=== PATIENT | female | born 1960 | race Caucasian/White ===

== ENCOUNTER 2017-02-27 11:10 | Inpatient (IN) | payer BC ==
[~2017-02-27] VITALS: Ht 167.6 cm; Wt 90.9 kg
[2017-02-27] MEDS ORDERED: ASPIRIN 325 MG TABLET PO ONE (11:30)
[2017-02-27 11:36] LABS: BASO # 0.1 x10^3/uL (0.0-0.2); BASO % 1 % (0-3); EOS % 1 % (0-3); HEMATOCRIT 36.3 % (36.0-47.0); HEMOGLOBIN 12.4 g/dL (12.0-15.5); LYMPH # 1.8 x10^3/uL (1.0-4.8); LYMPH % 23 % (24-48); MEAN CORPUSCULAR HEMOGLOBIN 30 pg (25-35); MEAN CORPUSCULAR HGB CONC 34 g/dL (31-37); MEAN CORPUSCULAR VOLUME 88 fL (79-100); MONO % 8 % (0-9); NEUT % 67 % (31-73); PLATELET COUNT 339 x10^3/uL (140-400); RED BLOOD COUNT 4.11 x10^6/uL (3.50-5.40); RED CELL DISTRIBUTION WIDTH 13.8 % (11.5-14.5); WHITE BLOOD COUNT 7.9 x10^3/uL (4.0-11.0)
[2017-02-27 11:46] LABS: CALCIUM 9.4 mg/dL (8.5-10.1); CREATININE 0.7 mg/dL (0.6-1.0); GFR 85.9; POTASSIUM 3.5 mmol/L (3.5-5.1)
[2017-02-27 11:53] LABS: ALBUMIN 3.5 g/dL (3.4-5.0); ALBUMIN/GLOBULIN RATIO 0.9 (1.0-1.7); MAGNESIUM 1.7 mg/dL (1.8-2.4); TOTAL BILIRUBIN 0.3 mg/dL (0.2-1.0); TOTAL PROTEIN 7.3 g/dL (6.4-8.2)
[2017-02-27 12:00] LABS: CKMB MASS < 0.5 ng/mL (0.0-3.6); CREATINE KINASE 53 U/L (26-192)
--- NOTE | 2017-02-27 12:06 | RAD ---
Frontal view of the Chest 02/27/2017 1:13 PM Indication: chest pain Comparison: None Findings: There is no focal consolidation or infiltrate identified. There is no effusion or pneumothorax. The cardiomediastinal silhouette and pulmonary vasculature are within normal limits. No osseous abnormality is identified. Impression: No evidence of acute cardiopulmonary process.
--- NOTE | 2017-02-27 12:32 | EKG ---
[facility] [address] [place] [address] Test Date: 2017-02-27 Test Time: 11:17:12 Pat Name: MAGEN CASTELAN Department: Room: Gender: F Stockholder: : 1960 Requested By: SANDIE ORLANDO Order Number: [id number] Reading MD: Measurements Intervals [place] Rate: 75 P: 20 NH: 164 QRS: -5 QRSD: 94 T: 22 QT: 412 QTc: 463 Interpretive Statements SINUS RHYTHM LEFT ATRIAL ABNORMALITY LEFTWARD AXIS ABNORMAL ECG RI6.01 No previous ECG available for comparison
--- NOTE | 2017-02-27 12:36 | PHYS DOC ---
Past Medical History Past Medical History: Arthritis, High Cholesterol, Hypertension Past Surgical History: , Hysterectomy, Other Additional Past Surgical Histo: OVARIAN CYST REMOVAL, CARDIA CATH, R CARPAL TUNNEL Alcohol Use: None Drug Use: None Adult General Chief Complaint Chief Complaint: CHEST PAIN HPI HPI Patient is a 56 year old female with history of hypertension high cholesterol and arthritis who presents today 6 out of 10 sharp mid substernal and left- sided chest pain that began 2 weeks ago and has been going on intermittently since then. Patient states the pain got worse today with radiation into the left shoulder as well as left chin. Patient is also complaining of nausea with no vomiting. Patient denies anything relieving the pain. Patient did not take an aspirin prior to coming to the ED. She states she's had multiple catheterization procedures for chest pain which were negative. PCP Dr. Alexis. Review of Systems Review of Systems Constitutional: Denies fever or chills [] Eyes: Denies change in visual acuity, redness, or eye pain [] HENT: Denies nasal congestion or sore throat [] Respiratory: Denies cough or shortness of breath [] Cardiovascular: Left-sided chest pain, substernal chest pain, pain radiating to the chin and left shoulder GI: Reports nausea. Denies abdominal pain, vomiting, bloody stools or diarrhea [ ] : Denies dysuria or hematuria [] Musculoskeletal: Denies back pain or joint pain [] Integument: Denies rash or skin lesions [] Neurologic: Denies headache, focal weakness or sensory changes [] All other systems were reviewed and found to be within normal limits, except as documented in this note. Current Medications Current Medications Current Medications Medications (Trade) Dose Ordered Sig/Erich Start Time Stop Time Status Last Admin Dose Admin Aspirin (Mary Aspirin) 325 mg 1X ONCE 02/27/17 11:30 02/27/17 11:31 DC 02/27/17 11:39 325 MG Allergies Allergies Allergies Coded Allergies Type Severity Reaction Last Updated Verified Corticosteroids (Glucocorticoids) Allergy Intermediate HIGH BP 02/27/17 Yes Penicillins Allergy Intermediate RASH 02/27/17 Yes Sulfa (Sulfonamide Antibiotics) Allergy Intermediate RASH 02/27/17 Yes diltiazem Allergy Intermediate RASH 02/27/17 Yes doxycycline Allergy Intermediate HEADACHE 02/27/17 Yes Physical Exam Physical Exam Constitutional: Well developed, well nourished, no acute distress, non-toxic appearance. [] HENT: Normocephalic, atraumatic, bilateral external ears normal, oropharynx moist, no oral exudates, nose normal. [] Eyes: PERRLA, EOMI, conjunctiva normal, no discharge. [] Neck: Normal range of motion, no tenderness, supple, no stridor. [] Cardiovascular:Heart rate regular rhythm, no murmur [] Lungs & Thorax: Bilateral breath sounds clear to auscultation [] Abdomen: Bowel sounds normal, soft, no tenderness, no masses, no pulsatile masses. [] Skin: Warm, dry, no erythema, no rash. [] Back: No tenderness, no CVA tenderness. [] Extremities: No tenderness, no cyanosis, no clubbing, ROM intact, no edema. [] Neurologic: Alert and oriented X 3, normal motor function, normal sensory function, no focal deficits noted. [] Psychologic: Affect normal, judgement normal, mood normal. [] Current Patient Data Vital Signs Vital Signs Date Time Temp Pulse Resp B/P (MAP) Pulse Ox O2 Delivery O2 Flow Rate FiO2 02/27/17 12:18 72 13 179/81 (113) 95 Room Air 02/27/17 11:15 98.3 98.3 Lab Values Laboratory Tests Test 02/27/17 11:30 02/27/17 12:30 White Blood Count 7.9 x10^3/uL (4.0-11.0) Red Blood Count 4.11 x10^6/uL (3.50-5.40) Hemoglobin 12.4 g/dL (12.0-15.5) Hematocrit 36.3 % (36.0-47.0) Mean Corpuscular Volume 88 fL (79-100) Mean Corpuscular Hemoglobin 30 pg (25-35) Mean Corpuscular Hemoglobin Concent 34 g/dL (31-37) Red Cell Distribution Width 13.8 % (11.5-14.5) Platelet Count 339 x10^3/uL (140-400) Neutrophils (%) (Auto) 67 % (31-73) Lymphocytes (%) (Auto) 23 % (24-48) L Monocytes (%) (Auto) 8 % (0-9) Eosinophils (%) (Auto) 1 % (0-3) Basophils (%) (Auto) 1 % (0-3) Neutrophils # (Auto) 5.3 x10^3uL (1.8-7.7) Lymphocytes # (Auto) 1.8 x10^3/uL (1.0-4.8) Monocytes # (Auto) 0.6 x10^3/uL (0.0-1.1) Eosinophils # (Auto) 0.1 x10^3/uL (0.0-0.7) Basophils # (Auto) 0.1 x10^3/uL (0.0-0.2) Prothrombin Time 13.0 SEC (11.7-14.0) Prothrombin Time INR 1.0 (0.8-1.1) Sodium Level 138 mmol/L (136-145) Potassium Level 3.5 mmol/L (3.5-5.1) Chloride Level 101 mmol/L (98-107) Carbon Dioxide Level 25 mmol/L (21-32) Anion Gap 12 (6-14) Blood Urea Nitrogen 9 mg/dL (7-20) Creatinine 0.7 mg/dL (0.6-1.0) Estimated GFR (Cockcroft-Gault) 85.9 BUN/Creatinine Ratio 13 (6-20) Glucose Level 94 mg/dL (70-99) Calcium Level 9.4 mg/dL (8.5-10.1) Magnesium Level 1.7 mg/dL (1.8-2.4) L Total Bilirubin 0.3 mg/dL (0.2-1.0) Aspartate Amino Transferase (AST) 23 U/L (15-37) Alanine Aminotransferase (ALT) 28 U/L (14-59) Alkaline Phosphatase 84 U/L (46-116) Creatine Kinase 53 U/L (26-192) Creatine Kinase MB (Mass) < 0.5 ng/mL (0.0-3.6) Creatine Kinase MB Relative Index % (0-4) Troponin I Quantitative < 0.017 ng/mL (0.000-0.055) PW-Efw-F-Type Natriuretic Peptide 362 pg/mL (0-124) H Total Protein 7.3 g/dL (6.4-8.2) Albumin 3.5 g/dL (3.4-5.0) Albumin/Globulin Ratio 0.9 (1.0-1.7) L Lipase 70 U/L (73-393) L Thyroid Stimulating Hormone (TSH) 2.405 uIU/mL (0.358-3.74) Urine Collection Type Unknown Urine Color Yellow Urine Clarity Clear Urine pH 6.0 Urine Specific [place] 1.010 Urine Protein Negative mg/dL (NEG-TRACE) Urine Glucose (UA) Negative mg/dL (NEG) Urine Ketones (Stick) Negative mg/dL (NEG) Urine Blood Negative (NEG) Urine Nitrite Negative (NEG) Urine Bilirubin Negative (NEG) Urine Urobilinogen Dipstick 0.2 mg/dL (0.2 mg/dL) Urine Leukocyte Esterase Negative (NEG) Urine RBC 0 /HPF (0-2) Urine WBC 5-10 /HPF (0-4) Urine Squamous Epithelial Cells Mod /LPF Urine Bacteria Many /HPF (0-FEW) Urine Mucus Mod /LPF Urine Opiates Screen Neg (NEG) Urine Methadone Screen Neg (NEG) Urine Barbiturates Neg (NEG) Urine Phencyclidine Screen Neg (NEG) Urine Amphetamine/Methamphetamine Neg (NEG) Urine Benzodiazepines Screen Neg (NEG) Urine Cocaine Screen Neg (NEG) Urine Cannabinoids Screen Neg (NEG) Urine Ethyl Alcohol Neg (NEG) Laboratory Tests 02/27/17 11:30 Laboratory Tests 02/27/17 11:30 EKG EKG Interpreted by Dr. Ojeda sinus rhythm, heart rate 75, QRS interval 94, no STEMI. Radiology/Procedures Radiology/Procedures [] Course & Med Decision Making Course & Med Decision Making Pertinent Labs and Imaging studies reviewed. (See chart for details) This is a 56-year-old female patient with risk factors of high cholesterol and high blood pressure who presents today with left-sided and substernal chest pain that began 2 weeks ago and has been going on intermittently since then but got worse this morning with radiation into the left shoulder and chin. Negative EKG as documented. Chest x-ray interpreted by radiologist as negative for any acute findings. CBC CMP with no acute findings, CK-MB and troponin are normal. BNP was 362. 12:49 Consulted with Mariaa EATON for cardiology who will follow-up with patient. 12:[address] Lu who accepted patient for admission. Dragon Disclaimer Dragon Disclaimer This electronic medical record was generated, in whole or in part, using a voice recognition dictation system. Departure Departure Impression: Primary Impression: Chest pain Disposition: 09 ADMITTED INPATIENT Condition: STABLE Referrals: NICOLE ALEXIS (PCP) Problem Qualifiers Primary Impression: Chest pain Chest pain type: unspecified Qualified Codes: R07.9 - Chest pain, unspecified SANDIE ORLANDO TECHNICAL PROJECT LEAD Feb 27, 2017 12:36
[2017-02-27 12:54] LABS: BILIRUBIN,URINE NEGATIVE (NEG); GLUCOSE,URINE NEGATIVE (NEG); NITRITE,URINE NEGATIVE (NEG); PROTEIN,URINE NEGATIVE (NEG-TRACE); UROBILINOGEN,URINE 0.2 mg/dL (0.2 mg/dL)
[2017-02-27 12:56] LABS: BARBITURATES NEG (NEG); BENZODIAZEPINES NEG (NEG); CANNABINOIDS NEG (NEG); COCAINE NEG (NEG); METHADONE NEG (NEG); OPIATES NEG (NEG); PHENCYCLIDINE NEG (NEG)
[2017-02-27 13:09] LABS: BACTERIA,URINE MANY /HPF (0-FEW); RBC,URINE 0 /HPF (0-2); SQUAMOUS EPITHELIAL CELL,UR MOD /LPF
[2017-02-27] MEDS ORDERED: NITROGLYCERIN SUBLINGUAL 0.4 MG BOTTLE OF 25. SL PRN (13:30)
[2017-02-27] MEDS ORDERED: MORPHINE SULFATE 4 MG/ML DISP.SYRIN. IV PRN (13:30)
--- NOTE | 2017-02-27 13:59 | PDOC2 ---
MAGDA STRATTON BENITEZ 02/27/17 1359: CARDIAC CONSULT DATE OF CONSULT Date of Consult DATE: 02/27/17 TIME: 13:41 REASON FOR CONSULT Reason for Consult: Chest Pain REFERRING PHYSICIAN Referring Physician: Eleni Unger APRN SOURCE Source: Chart review, Patient HISTORY OF PRESENT ILLNESS HISTORY OF PRESENT ILLNESS This is a 56 yo female who presented with complaints of chest pain. Patient reports pain began this morning upon awakening. Located in her left chest. Describes as aching and sharp in nature. Associated with chin pain and mild nausea. No SOA, dizziness, diaphoresis, or palpations. Pain worsened by pressing on the left chest. Pain resolves without intervention. Reports experiencing intermittent left chest pain for the last couple of weeks. No precipitating or exacerbating factors. Resolves without intervention in a couple of minutes. BP noted to be significantly elevated upon arrival. Patient reports having normal heart cath 4-5 years ago and normal cardio scan 2 years ago. Does not follow routinely with [employer] patrol[employer]. Also reports history of mitral valve prolapse- although reports this was not identified with most recent echo a couple of years ago. PAST MEDICAL HISTORY Cardiovascular: HTN, Hyperlipidemia, Other (mitral valve prolapse) GI: GERD Psych: Anxiety, Depression Musculoskeletal: Osteoarthritis, Other (DDD) Rheumatologic: No pertinent hx Infectious disease: No pertinent hx ENT: No pertinent hx Renal/: No pertinent hx Endocrine: No pertinent hx Dermatology: No pertinent hx PAST SURGICAL HISTORY Past Surgical History: No pertinent history FAMILY HISTORY Family History: Coronary Artery Disease, Diabetes, Hypertension SOCIAL HISTORY Smoke: No ALCOHOL: none Drugs: None Lives: with Family CURRENT MEDICATIONS CURRENT MEDICATIONS Current Medications Medications (Trade) Dose Ordered Sig/Erich Route PRN Reason Start Time Stop Time Status Last Admin Dose Admin Aspirin (Mary Aspirin) 325 mg 1X ONCE PO 02/27/17 11:30 02/27/17 11:31 DC 02/27/17 11:39 ALLERGIES ALLERGIES: Coded Allergies: Corticosteroids (Glucocorticoids) (Verified Allergy, Intermediate, HIGH BP , 02/27/17) Penicillins (Verified Allergy, Intermediate, RASH, 02/27/17) Sulfa (Sulfonamide Antibiotics) (Verified Allergy, Intermediate, RASH, ) diltiazem (Verified Allergy, Intermediate, RASH, 02/27/17) doxycycline (Verified Allergy, Intermediate, HEADACHE, 02/27/17) ROS Review of System 14 point ROS conducted with pertinent positives noted above in HPI. PHYSICAL EXAM General: Alert, Oriented X3, Cooperative, No acute distress HEENT: Atraumatic, Mucous membr. moist/pink Lungs: Clear to auscultation, Normal air movement Heart: Regular rate, Normal S1, Normal S2, Other (2/6 systolic murmur, left chest tenderness upon palpation) Abdomen: Soft, No tenderness Extremities: No edema, Normal pulses Skin: No significant lesion Neuro: Normal speech, Sensation intact Psych/Mental Status: Mental status NL, Mood NL MUSCULOSKELETAL: Osteoarthritic changes both hands VITALS VITALS Vital Signs Date Time Temp Pulse Resp B/P (MAP) Pulse Ox O2 Delivery O2 Flow Rate FiO2 02/27/17 13:18 76 156/79 (104) 96 Room Air 02/27/17 12:18 13 02/27/17 11:15 98.3 98.3 LABS Lab: Laboratory Tests Test 02/27/17 11:30 02/27/17 12:30 White Blood Count 7.9 x10^3/uL (4.0-11.0) Red Blood Count 4.11 x10^6/uL (3.50-5.40) Hemoglobin 12.4 g/dL (12.0-15.5) Hematocrit 36.3 % (36.0-47.0) Mean Corpuscular Volume 88 fL (79-100) Mean Corpuscular Hemoglobin 30 pg (25-35) Mean Corpuscular Hemoglobin Concent 34 g/dL (31-37) Red Cell Distribution Width 13.8 % (11.5-14.5) Platelet Count 339 x10^3/uL (140-400) Neutrophils (%) (Auto) 67 % (31-73) Lymphocytes (%) (Auto) 23 % (24-48) Monocytes (%) (Auto) 8 % (0-9) Eosinophils (%) (Auto) 1 % (0-3) Basophils (%) (Auto) 1 % (0-3) Neutrophils # (Auto) 5.3 x10^3uL (1.8-7.7) Lymphocytes # (Auto) 1.8 x10^3/uL (1.0-4.8) Monocytes # (Auto) 0.6 x10^3/uL (0.0-1.1) Eosinophils # (Auto) 0.1 x10^3/uL (0.0-0.7) Basophils # (Auto) 0.1 x10^3/uL (0.0-0.2) Prothrombin Time 13.0 SEC (11.7-14.0) Prothromb Time International Ratio 1.0 (0.8-1.1) Sodium Level 138 mmol/L (136-145) Potassium Level 3.5 mmol/L (3.5-5.1) Chloride Level 101 mmol/L (98-107) Carbon Dioxide Level 25 mmol/L (21-32) Anion Gap 12 (6-14) Blood Urea Nitrogen 9 mg/dL (7-20) Creatinine 0.7 mg/dL (0.6-1.0) Estimated GFR (Cockcroft-Gault) 85.9 BUN/Creatinine Ratio 13 (6-20) Glucose Level 94 mg/dL (70-99) Calcium Level 9.4 mg/dL (8.5-10.1) Magnesium Level 1.7 mg/dL (1.8-2.4) Total Bilirubin 0.3 mg/dL (0.2-1.0) Aspartate Amino Transf (AST/SGOT) 23 U/L (15-37) Alanine Aminotransferase (ALT/SGPT) 28 U/L (14-59) Alkaline Phosphatase 84 U/L (46-116) Creatine Kinase 53 U/L (26-192) Creatine Kinase MB (Mass) < 0.5 ng/mL (0.0-3.6) Creatine Kinase MB Relative Index % (0-4) Troponin I Quantitative < 0.017 ng/mL (0.000-0.055) NR-Ooy-H-Type Natriuretic Peptide 362 pg/mL (0-124) Total Protein 7.3 g/dL (6.4-8.2) Albumin 3.5 g/dL (3.4-5.0) Albumin/Globulin Ratio 0.9 (1.0-1.7) Lipase 70 U/L (73-393) Thyroid Stimulating Hormone (TSH) 2.405 uIU/mL (0.358-3.74) Urine Collection Type Unknown Urine Color Yellow Urine Clarity Clear Urine pH 6.0 Urine Specific [place] 1.010 Urine Protein Negative mg/dL (NEG-TRACE) Urine Glucose (UA) Negative mg/dL (NEG) Urine Ketones (Stick) Negative mg/dL (NEG) Urine Blood Negative (NEG) Urine Nitrite Negative (NEG) Urine Bilirubin Negative (NEG) Urine Urobilinogen Dipstick 0.2 mg/dL (0.2 mg/dL) Urine Leukocyte Esterase Negative (NEG) Urine RBC 0 /HPF (0-2) Urine WBC 5-10 /HPF (0-4) Urine Squamous Epithelial Cells Mod /LPF Urine Bacteria Many /HPF (0-FEW) Urine Mucus Mod /LPF Urine Opiates Screen Neg (NEG) Urine Methadone Screen Neg (NEG) Urine Barbiturates Neg (NEG) Urine Phencyclidine Screen Neg (NEG) Urine Amphetamine/Methamphetamine Neg (NEG) Urine Benzodiazepines Screen Neg (NEG) Urine Cocaine Screen Neg (NEG) Urine Cannabinoids Screen Neg (NEG) Urine Ethyl Alcohol Neg (NEG) ASSESSMENT/PLAN ASSESSMENT/PLAN 1. Chest pain, atypical 2. Hypertension 3. Hyperlipidemia 4. GERD Recommendations Trend troponin Check lipids Resume home antiHTN therapy. Pain most probably MSK in origin, but given risk factors, will check echo to assess LV function If echo WNL, second troponin negative, and BP better controlled, can probably discharge from a CV standpoint and f/u on a outpatient basis. Problems: BRITTON GIBBONS MD 02/28/17 1447: CARDIAC CONSULT ALLERGIES ALLERGIES: Coded Allergies: Corticosteroids (Glucocorticoids) (Verified Allergy, Intermediate, HIGH BP , 02/27/17) Penicillins (Verified Allergy, Intermediate, RASH, 02/27/17) Sulfa (Sulfonamide Antibiotics) (Verified Allergy, Intermediate, RASH, ) diltiazem (Verified Allergy, Intermediate, RASH, 02/27/17) doxycycline (Verified Allergy, Intermediate, HEADACHE, 02/27/17) ASSESSMENT/PLAN ASSESSMENT/PLAN Late entry for 02/27/2017 Pt. seen and examined. Agree with above CHEMICAL RESEARCH TECHNICIAN note. Increase Losartan to 100mg daily. Keep BP log and f/u on an outpt basis. Echo wnl. Trop negative. EKG unremarkable. Low risk presentation. If persistent pain, consider outpt stress. Problems: MAGDA STRATTON APRN Feb 27, 2017 13:59 BRITTON GIBBONS MD Feb 28, 2017 14:47
[2017-02-27] MEDS: ACETAMINOPHEN 325 MG TABLET. PO PRN (14:32)
[2017-02-27 15:00] VITALS: BP 195/79
[2017-02-27] MEDS ORDERED: MAGNESIUM SULFATE 2GM 50 ML IV ONE (15:15)
--- NOTE | 2017-02-27 15:29 | CARD ---
APPROVED REPORT EXAM: Two-dimensional and M-mode echocardiogram with Doppler and color Doppler. Other Information Quality : Good INDICATION Chest Pain 2D DIMENSIONS Left Atrium(2D)3.5 (1.6-4.0cm)IVSd1.4 (0.7-1.1cm) Aortic Root(2D)3.2 (2.0-3.7cm)LVDd4.6 (3.9-5.9cm) LVOT Diameter2.1 (1.8-2.4cm)PWd1.3 (0.7-1.1cm) LVDs3.3 (2.5-4.0cm)FS (%) 27.6 % SV52.2 mlLVEF(%)53.6 (>50%) Aortic Valve AoV Peak Wily.139.0cm/sAoV VTI32.2cm AO Peak GR.7.7mmHgLVOT Peak Wily.111.2cm/s AO Mean GR.4mmHgAVA (VMAX)2.77cm2 CHRISTINE (VTI)2.80cm2 Mitral Valve MV E Rvmctgpy58.9cm/sMV DECEL LCPC912zw MV A Gxcvyfis848.4cm/sE/A Ratio0.6 Tricuspid Valve TR P. Vokrlcaa157pq/sRAP QKYOVFGF5gwHk TR Peak Gr.65wnOfVTTB49pdJz LEFT VENTRICLE The left ventricle is normal size. There is mild concentric left ventricular hypertrophy. Left ventri carmen systolic function is normal. The Ejection Fraction is 55-60%. There is normal LV segmental wall m otion. Transmitral Doppler flow pattern is Grade I-abnormal relaxation pattern. RIGHT VENTRICLE The right ventricle is normal size. The right ventricular systolic function is normal. ATRIA The left atrium size is normal. The right atrium size is normal. The interatrial septum is intact wit h no evidence for an atrial septal defect or patent foramen ovale as noted on 2-D or Doppler imaging. AORTIC VALVE The aortic valve is mildly thickened but opens well. Doppler and Color Flow revealed no significant a ortic regurgitation. There is no significant aortic valvular stenosis. MITRAL VALVE The mitral valve is calcified but opens well. There is no evidence of mitral valve prolapse. There is no mitral valve stenosis. Doppler and Color-flow revealed mild mitral regurgitation. TRICUSPID VALVE The tricuspid valve is normal in structure. Doppler and Color Flow revealed mild tricuspid regurgitat ion. There is no pulmonary hypertension. The PA pressure was estimated at 28 mmHg. There is no tricus pid valve prolapse or vegetation. There is no tricuspid valve stenosis. PULMONIC VALVE The pulmonary valve is normal in structure and function. Doppler and Color Flow revealed no pulmonic valvular regurgitation. There is no pulmonic valvular stenosis. GREAT VESSELS The aortic root is normal in size. The ascending aorta is normal in size. The IVC is normal in size a nd collapses >50% with inspiration. PERICARDIAL EFFUSION There is no pleural effusion. There is no evidence of significant pericardial effusion. Critical Notification Critical Value: No <Conclusion> Left ventricle systolic function is normal. The Ejection Fraction is 55-60%. There is normal LV segmental wall motion. Transmitral Doppler flow pattern is Grade I-abnormal relaxation pattern. Mild mitral regurgitation. Mild tricuspid regurgitation. The PA pressure was estimated at 28 mmHg. There is no evidence of significant pericardial effusion.
[2017-02-27] MEDS ORDERED: ASPI-630 PO (15:52)
[2017-02-27] MEDS ORDERED: LOSA50TA6 PO (15:52)
[2017-02-27] MEDS ORDERED: ESCITALOPRAM OX20 MG PO (15:52)
[2017-02-27] MEDS ORDERED: IBUP-1060 PO (15:52)
[2017-02-27] MEDS ORDERED: CETI10TA22 PO (15:52)
[2017-02-27] MEDS ORDERED: OXYC5CAP PO (15:52)
[2017-02-27] MEDS ORDERED: PANT40TA3 PO (15:52)
[2017-02-27] MEDS ORDERED: ALPR0.5T6 PO (15:52)
[2017-02-27] MEDS ORDERED: ESTR0.9T PO (15:52)
[2017-02-27] MEDS ORDERED: ACET500T68 PO (15:52)
[2017-02-27] MEDS ORDERED: LIDO:MAALOX:DONNATAL 1:1:1 15 ML SINGLE DOSE SWSW ONE (16:15)
[2017-02-27] MEDS ORDERED: cloNIDine HCL 0.1 MG TABLET PO ONE (16:15)
[2017-02-27] MEDS ORDERED: ACETAMINOPHEN 500 MG TABLET PO PRN (16:30)
[2017-02-27] MEDS ORDERED: ALPRAZolam 0.5 MG TABLET PO PRN (16:30)
[2017-02-27] MEDS: LOSARTAN POTASSIUM 50 MG TABLET. PO SCH (17:00)
[2017-02-27] MEDS ORDERED: CLON0.1T PO (17:16)
[2017-02-27 17:38] VITALS: BP 145/77
--- NOTE | 2017-02-27 18:49 | PDOC1 ---
History and Physical Date of Admission Date of Admission DATE: 02/27/17 TIME: 18:48 History of Present Illness History of Present Illness PAST MEDICAL HISTORY Cardiovascular: HTN, Hyperlipidemia, Other (mitral valve prolapse) GI: GERD Psych: Anxiety, Depression Musculoskeletal: Osteoarthritis, Other (DDD) Rheumatologic: No pertinent hx Infectious disease: No pertinent hx ENT: No pertinent hx Renal/: No pertinent hx Endocrine: No pertinent hx Dermatology: No pertinent hx PAST SURGICAL HISTORY Past Surgical History: No pertinent history FAMILY HISTORY Family History: Coronary Artery Disease, Diabetes, Hypertension SOCIAL HISTORY Smoke: No ALCOHOL: none Drugs: None Lives: with Family Reason for Visit: chest pain x 2 weeks Past Medical History Cardiovascular: HTN, Hyperlipidemia, Other (mitral valve prolapse) GI: GERD Psych: Anxiety, Depression Musculoskeletal: Osteoarthritis, Other (DDD) Rheumatologic: No pertinent hx Infectious disease: No pertinent hx ENT: No pertinent hx Renal/: No pertinent hx Endocrine: No pertinent hx Dermatology: No pertinent hx Past Surgical History Past Surgical History: No pertinent history Family History Family History: Coronary Artery Disease, Diabetes, Hypertension Social History Smoke: No ALCOHOL: none Drugs: None Current Problem List Problem List Problems Medical Problems: (1) Chest pain Status: Acute Problems: Current Medications Current Medications Current Medications Aspirin (Mary Aspirin) 325 mg 1X ONCE PO Last administered on 02/27/17 11: 39; Start 02/27/17 at 11:30; Stop 02/27/17 at 11:31; Status DC Ondansetron HCl (Zofran) 4 mg PRN Q8HRS PRN IV NAUSEA/VOMITING; Start at 13:30; Stop 02/28/17 at 13:29 Morphine Sulfate 4 mg PRN Q2HR PRN IV PAIN; Start 02/27/17 at 13:30; Stop at 13:29 Acetaminophen (Tylenol) 650 mg PRN Q4HRS PRN PO FEVER Last administered on 14:32; Start 02/27/17 at 13:30; Stop 02/28/17 at 13:29 Nitroglycerin (Nitrostat) 0.4 mg PRN Q5MIN PRN SL CHEST PAIN; Start 02/27/17 at 13:30; Stop 02/28/17 at 13:29 Hydralazine HCl (Apresoline Inj) 10 mg PRN Q4HRS PRN IVP ELEVATED BP, SEE COMMENTS; Start 02/27/17 at 14:00 Magnesium Sulfate/ Dextrose 50 ml @ 25 mls/hr 1X ONCE IV Last administered on 02/27/17 16:32; Start 02/27/17 at 15:15; Stop 02/27/17 at 17:14; Status DC Clonidine HCl (Catapres) 0.1 mg 1X ONCE PO Last administered on 02/27/17 16: 24; Start 02/27/17 at 16:15; Stop 02/27/17 at 16:17; Status DC Multi-Ingredient Mouthwash/Gargle (Gi Cocktail Single Dose) 15 ml 1X ONCE SWSW Last administered on 02/27/17 16:22; Start 02/27/17 at 16:15; Stop at 16:17; Status DC Acetaminophen (Tylenol) 500 mg PRN Q6HRS PRN PO PAIN; Start 02/27/17 at 16:30 Alprazolam (Xanax) 0.5 mg PRN DAILY PRN PO ANXIETY / AGITATION; Start at 16:30 Aspirin (Children'S Aspirin) 81 mg HS PO ; Start 02/27/17 at 21:00 Cetirizine HCl (ZyrTEC) 10 mg DAILY PO ; Start 02/28/17 at 09:00 Losartan Potassium (Cozaar) 50 mg DAILY PO ; Start 02/27/17 at 17:00 Pantoprazole Sodium (Protonix) 40 mg QHS PO ; Start 02/27/17 at 21:00 Citalopram Hydrobromide (CeleXA) 40 mg DAILY PO ; Start 02/28/17 at 09:00 Estrogens Conjugated (Premarin) 0.9 mg DAILY PO ; Start 02/28/17 at 09:00 Ibuprofen (Motrin) 800 mg PRN Q6HRS PRN PO INFLAMMATION; Start 02/27/17 at 16: 30 Oxycodone HCl (Roxicodone) 5 mg PRN Q4HRS PRN PO MODERATE TO SEVERE PAIN; Start 02/27/17 at 16:30 Active Scripts Active Reported Clonidine Hcl 0.1 Mg Tablet 1 Tab PO PRN DAILY PRN Oxycodone Hcl 5 Mg Capsule 1 Cap PO PRN Q4-6HRS PRN Ibuprofen 800 Mg Tablet 800 Mg PO PRN Q6HRS PRN Acetaminophen 500 Mg Tablet 1 Tab PO PRN PRN Alprazolam 0.5 Mg Tablet 1 Tab PO PRN DAILY PRN Aspirin 81 Mg Tab.chew 1 Tab PO HS Protonix (Pantoprazole Sodium) 40 Mg Tablet.dr 1 Tab PO HS Escitalopram Oxalate 20 Mg Tablet 1 Tab PO HS Zyrtec (Cetirizine Hcl) 10 Mg Tablet 1 Tab PO DAILY Losartan Potassium 50 Mg Tablet 50 Mg PO DAILY Premarin (Estrogens, Conjugated) 0.9 Mg Tablet 1 Tab PO DAILY Allergies Allergies: Coded Allergies: Corticosteroids (Glucocorticoids) (Verified Allergy, Intermediate, HIGH BP , 02/27/17) Penicillins (Verified Allergy, Intermediate, RASH, 02/27/17) Sulfa (Sulfonamide Antibiotics) (Verified Allergy, Intermediate, RASH, ) diltiazem (Verified Allergy, Intermediate, RASH, 02/27/17) doxycycline (Verified Allergy, Intermediate, HEADACHE, 02/27/17) Physical Exam General: Alert, Oriented X3, Cooperative, No acute distress HEENT: Atraumatic, EOMI, Mucous membr. moist/pink Lungs: Clear to auscultation Heart: S1S2, RRR, no gallops Cardiovascular: S1, S2 Abdomen: Soft, No tenderness Extremities: No clubbing, No cyanosis, No edema, No tenderness/swelling Skin: No rashes, No breakdown Neuro: Normal speech, Cranial nerves 3-12 NL Psych/Mental Status: Mental status NL Vitals Vitals Vital Signs Date Time Temp Pulse Resp B/P (MAP) Pulse Ox O2 Delivery O2 Flow Rate FiO2 02/27/17 17:38 145/77 (99) 02/27/17 16:24 70 02/27/17 15:00 97.9 19 97 Room Air 97.9 Labs Labs INDICATION Chest Pain 2D DIMENSIONS Left Atrium(2D) 3.5 (1.6-4.0cm) IVSd 1.4 (0.7-1.1cm) Aortic Root(2D) 3.2 (2.0-3.7cm) LVDd 4.6 (3.9-5.9cm) LVOT Diameter 2.1 (1.8-2.4cm) PWd 1.3 (0.7-1.1cm) LVDs 3.3 (2.5-4.0cm) FS (%) 27.6 % SV 52.2 ml LVEF(%) 53.6 (>50%) Aortic Valve AoV Peak Wily. 139.0cm/s AoV VTI 32.2cm AO Peak GR. 7.7mmHg LVOT Peak Wily. 111.2cm/s AO Mean GR. 4mmHg CHRISTINE (VMAX) 2.77cm2 CHRISTINE (VTI) 2.80cm2 Mitral Valve MV E Velocity 79.9cm/s MV DECEL TIME 163ms MV A Velocity 134.4cm/s E/A Ratio 0.6 Tricuspid Valve TR P. Velocity 250cm/s RAP ESTIMATE 3mmHg TR Peak Gr. 25mmHg RVSP 28mmHg LEFT VENTRICLE The left ventricle is normal size. There is mild concentric left ventricular hypertrophy. Left ventricle systolic function is normal. The Ejection Fraction is 55-60%. There is normal LV segmental wall motion. Transmitral Doppler flow pattern is Grade I-abnormal relaxation pattern. RIGHT VENTRICLE The right ventricle is normal size. The right ventricular systolic function is normal. ATRIA The left atrium size is normal. The right atrium size is normal. The interatrial septum is intact with no evidence for an atrial septal defect or patent foramen ovale as noted on 2-D or Doppler imaging. AORTIC VALVE The aortic valve is mildly thickened but opens well. Doppler and Color Flow revealed no significant aortic regurgitation. There is no significant aortic valvular stenosis. MITRAL VALVE The mitral valve is calcified but opens well. There is no evidence of mitral valve prolapse. There is no mitral valve stenosis. Doppler and Color-flow revealed mild mitral regurgitation. TRICUSPID VALVE The tricuspid valve is normal in structure. Doppler and Color Flow revealed mild tricuspid regurgitation. There is no pulmonary hypertension. The PA pressure was estimated at 28 mmHg. There is no tricuspid valve prolapse or vegetation. There is no tricuspid valve stenosis. PULMONIC VALVE The pulmonary valve is normal in structure and function. Doppler and Color Flow revealed no pulmonic valvular regurgitation. There is no pulmonic valvular stenosis. GREAT VESSELS The aortic root is normal in size. The ascending aorta is normal in size. The IVC is normal in size and collapses >50% with inspiration. PERICARDIAL EFFUSION There is no pleural effusion. There is no evidence of significant pericardial effusion. Critical Notification Critical Value: No <Conclusion> Left ventricle systolic function is normal. The Ejection Fraction is 55-60%. Laboratory Tests Test 02/27/17 11:30 02/27/17 12:30 02/27/17 17:00 White Blood Count 7.9 x10^3/uL (4.0-11.0) Red Blood Count 4.11 x10^6/uL (3.50-5.40) Hemoglobin 12.4 g/dL (12.0-15.5) Hematocrit 36.3 % (36.0-47.0) Mean Corpuscular Volume 88 fL (79-100) Mean Corpuscular Hemoglobin 30 pg (25-35) Mean Corpuscular Hemoglobin Concent 34 g/dL (31-37) Red Cell Distribution Width 13.8 % (11.5-14.5) Platelet Count 339 x10^3/uL (140-400) Neutrophils (%) (Auto) 67 % (31-73) Lymphocytes (%) (Auto) 23 % (24-48) Monocytes (%) (Auto) 8 % (0-9) Eosinophils (%) (Auto) 1 % (0-3) Basophils (%) (Auto) 1 % (0-3) Neutrophils # (Auto) 5.3 x10^3uL (1.8-7.7) Lymphocytes # (Auto) 1.8 x10^3/uL (1.0-4.8) Monocytes # (Auto) 0.6 x10^3/uL (0.0-1.1) Eosinophils # (Auto) 0.1 x10^3/uL (0.0-0.7) Basophils # (Auto) 0.1 x10^3/uL (0.0-0.2) Prothrombin Time 13.0 SEC (11.7-14.0) Prothromb Time International Ratio 1.0 (0.8-1.1) Sodium Level 138 mmol/L (136-145) Potassium Level 3.5 mmol/L (3.5-5.1) Chloride Level 101 mmol/L (98-107) Carbon Dioxide Level 25 mmol/L (21-32) Anion Gap 12 (6-14) Blood Urea Nitrogen 9 mg/dL (7-20) Creatinine 0.7 mg/dL (0.6-1.0) Estimated GFR (Cockcroft-Gault) 85.9 BUN/Creatinine Ratio 13 (6-20) Glucose Level 94 mg/dL (70-99) Calcium Level 9.4 mg/dL (8.5-10.1) Magnesium Level 1.7 mg/dL (1.8-2.4) Total Bilirubin 0.3 mg/dL (0.2-1.0) Aspartate Amino Transf (AST/SGOT) 23 U/L (15-37) Alanine Aminotransferase (ALT/SGPT) 28 U/L (14-59) Alkaline Phosphatase 84 U/L (46-116) Creatine Kinase 53 U/L (26-192) Creatine Kinase MB (Mass) < 0.5 ng/mL (0.0-3.6) Creatine Kinase MB Relative Index % (0-4) Troponin I Quantitative < 0.017 ng/mL (0.000-0.055) < 0.017 ng/mL (0.000-0.055) FA-Btk-I-Type Natriuretic Peptide 362 pg/mL (0-124) Total Protein 7.3 g/dL (6.4-8.2) Albumin 3.5 g/dL (3.4-5.0) Albumin/Globulin Ratio 0.9 (1.0-1.7) Lipase 70 U/L (73-393) Thyroid Stimulating Hormone (TSH) 2.405 uIU/mL (0.358-3.74) Urine Collection Type Unknown Urine Color Yellow Urine Clarity Clear Urine pH 6.0 Urine Specific [place] 1.010 Urine Protein Negative mg/dL (NEG-TRACE) Urine Glucose (UA) Negative mg/dL (NEG) Urine Ketones (Stick) Negative mg/dL (NEG) Urine Blood Negative (NEG) Urine Nitrite Negative (NEG) Urine Bilirubin Negative (NEG) Urine Urobilinogen Dipstick 0.2 mg/dL (0.2 mg/dL) Urine Leukocyte Esterase Negative (NEG) Urine RBC 0 /HPF (0-2) Urine WBC 5-10 /HPF (0-4) Urine Squamous Epithelial Cells Mod /LPF Urine Bacteria Many /HPF (0-FEW) Urine Mucus Mod /LPF Urine Opiates Screen Neg (NEG) Urine Methadone Screen Neg (NEG) Urine Barbiturates Neg (NEG) Urine Phencyclidine Screen Neg (NEG) Urine Amphetamine/Methamphetamine Neg (NEG) Urine Benzodiazepines Screen Neg (NEG) Urine Cocaine Screen Neg (NEG) Urine Cannabinoids Screen Neg (NEG) Urine Ethyl Alcohol Neg (NEG) Laboratory Tests Test 02/27/17 11:30 02/27/17 12:30 02/27/17 17:00 White Blood Count 7.9 x10^3/uL (4.0-11.0) Red Blood Count 4.11 x10^6/uL (3.50-5.40) Hemoglobin 12.4 g/dL (12.0-15.5) Hematocrit 36.3 % (36.0-47.0) Mean Corpuscular Volume 88 fL (79-100) Mean Corpuscular Hemoglobin 30 pg (25-35) Mean Corpuscular Hemoglobin Concent 34 g/dL (31-37) Red Cell Distribution Width 13.8 % (11.5-14.5) Platelet Count 339 x10^3/uL (140-400) Neutrophils (%) (Auto) 67 % (31-73) Lymphocytes (%) (Auto) 23 % (24-48) Monocytes (%) (Auto) 8 % (0-9) Eosinophils (%) (Auto) 1 % (0-3) Basophils (%) (Auto) 1 % (0-3) Neutrophils # (Auto) 5.3 x10^3uL (1.8-7.7) Lymphocytes # (Auto) 1.8 x10^3/uL (1.0-4.8) Monocytes # (Auto) 0.6 x10^3/uL (0.0-1.1) Eosinophils # (Auto) 0.1 x10^3/uL (0.0-0.7) Basophils # (Auto) 0.1 x10^3/uL (0.0-0.2) Prothrombin Time 13.0 SEC (11.7-14.0) Prothromb Time International Ratio 1.0 (0.8-1.1) Sodium Level 138 mmol/L (136-145) Potassium Level 3.5 mmol/L (3.5-5.1) Chloride Level 101 mmol/L (98-107) Carbon Dioxide Level 25 mmol/L (21-32) Anion Gap 12 (6-14) Blood Urea Nitrogen 9 mg/dL (7-20) Creatinine 0.7 mg/dL (0.6-1.0) Estimated GFR (Cockcroft-Gault) 85.9 BUN/Creatinine Ratio 13 (6-20) Glucose Level 94 mg/dL (70-99) Calcium Level 9.4 mg/dL (8.5-10.1) Magnesium Level 1.7 mg/dL (1.8-2.4) Total Bilirubin 0.3 mg/dL (0.2-1.0) Aspartate Amino Transf (AST/SGOT) 23 U/L (15-37) Alanine Aminotransferase (ALT/SGPT) 28 U/L (14-59) Alkaline Phosphatase 84 U/L (46-116) Creatine Kinase 53 U/L (26-192) Creatine Kinase MB (Mass) < 0.5 ng/mL (0.0-3.6) Creatine Kinase MB Relative Index % (0-4) Troponin I Quantitative < 0.017 ng/mL (0.000-0.055) < 0.017 ng/mL (0.000-0.055) VP-Aqn-S-Type Natriuretic Peptide 362 pg/mL (0-124) Total Protein 7.3 g/dL (6.4-8.2) Albumin 3.5 g/dL (3.4-5.0) Albumin/Globulin Ratio 0.9 (1.0-1.7) Lipase 70 U/L (73-393) Thyroid Stimulating Hormone (TSH) 2.405 uIU/mL (0.358-3.74) Urine Collection Type Unknown Urine Color Yellow Urine Clarity Clear Urine pH 6.0 Urine Specific [place] 1.010 Urine Protein Negative mg/dL (NEG-TRACE) Urine Glucose (UA) Negative mg/dL (NEG) Urine Ketones (Stick) Negative mg/dL (NEG) Urine Blood Negative (NEG) Urine Nitrite Negative (NEG) Urine Bilirubin Negative (NEG) Urine Urobilinogen Dipstick 0.2 mg/dL (0.2 mg/dL) Urine Leukocyte Esterase Negative (NEG) Urine RBC 0 /HPF (0-2) Urine WBC 5-10 /HPF (0-4) Urine Squamous Epithelial Cells Mod /LPF Urine Bacteria Many /HPF (0-FEW) Urine Mucus Mod /LPF Urine Opiates Screen Neg (NEG) Urine Methadone Screen Neg (NEG) Urine Barbiturates Neg (NEG) Urine Phencyclidine Screen Neg (NEG) Urine Amphetamine/Methamphetamine Neg (NEG) Urine Benzodiazepines Screen Neg (NEG) Urine Cocaine Screen Neg (NEG) Urine Cannabinoids Screen Neg (NEG) Urine Ethyl Alcohol Neg (NEG) VTE Prophylaxis Ordered VTE Prophylaxis Devices: Yes (lovenox) VTE Pharmacological Prophylaxi: Yes (lovenox) Assessment/Plan Assessment/Plan 1. atypical chest and epigastric pain 2. stress and anxiety 3. hypertension 4. obesity plan ct angiography of chest serial troponin i echo cardiology consult telemetry YOGESH DIEGO MD Feb 27, 2017 18:49
[2017-02-27 19:05] VITALS: BP 134/77
[2017-02-27] MEDS ORDERED: ENOXAPARIN 40 MG/0.4 ML SYRINGE. SQ SCH (19:15)
[2017-02-27] MEDS: oxyCODONE IR 5 MG TABLET PO PRN ×2 (19:29→23:37)
[2017-02-27] MEDS ORDERED: MAG HYDROX/ALUMINUM HYD/SIMETH 30 ML ORAL.SUSP PO PRN (19:30)
[2017-02-27] MEDS ORDERED: PANTOPRAZOLE 40 MG TABLET.DR. PO SCH (21:00)
[2017-02-27] MEDS ORDERED: ASPIRIN CHEWABLE 81 MG TABLET. PO SCH (21:00)
[2017-02-27] MEDS: FAMOTIDINE 20 MG TABLET. PO SCH (21:20)
[2017-02-27] MEDS: IBUPROFEN 800 MG TABLET. PO PRN (21:37)
[2017-02-27] MEDS ORDERED: CITALOPRAM 20 MG TABLET. PO SCH (22:00)
[2017-02-27 22:48] VITALS: BP 179/85
[2017-02-27 23:16] VITALS: BP 165/82
[2017-02-27] MEDS: hydrALAZINE 20 MG/ML VIAL. IVP PRN (23:37)
[2017-02-28 01:20] LABS: BASO % 1 % (0-3); EOS % 2 % (0-3); HEMATOCRIT 33.3 % (36.0-47.0); HEMOGLOBIN 11.4 g/dL (12.0-15.5); LYMPH # 2.1 x10^3/uL (1.0-4.8); LYMPH % 39 % (24-48); MEAN CORPUSCULAR HEMOGLOBIN 31 pg (25-35); MEAN CORPUSCULAR HGB CONC 34 g/dL (31-37); MEAN CORPUSCULAR VOLUME 89 fL (79-100); MONO % 11 % (0-9); NEUT % 48 % (31-73); PLATELET COUNT 310 x10^3/uL (140-400); RED BLOOD COUNT 3.73 x10^6/uL (3.50-5.40); RED CELL DISTRIBUTION WIDTH 13.5 % (11.5-14.5); WHITE BLOOD COUNT 5.3 x10^3/uL (4.0-11.0)
[2017-02-28 01:46] LABS: CALCIUM 8.5 mg/dL (8.5-10.1); CREATININE 0.7 mg/dL (0.6-1.0); GFR 85.9; POTASSIUM 3.8 mmol/L (3.5-5.1)
[2017-02-28 01:58] LABS: CHOLESTEROL/HDL RATIO 7.7
[2017-02-28 02:42] VITALS: BP 146/73
[2017-02-28] MEDS: IBUPROFEN 800 MG TABLET. PO PRN (04:36)
[2017-02-28] MEDS: ONDANSETRON PF 4 MG/2 ML VIAL. IV PRN ×2 (04:38→11:00)
[2017-02-28 07:00] VITALS: BP 120/64
[2017-02-28] MEDS: FAMOTIDINE 20 MG TABLET. PO SCH (08:47)
[2017-02-28] MEDS: LOSARTAN POTASSIUM 50 MG TABLET. PO SCH (08:47)
[2017-02-28] MEDS: ACETAMINOPHEN 325 MG TABLET. PO PRN (08:51)
[2017-02-28] MEDS ORDERED: ESTROGENS, CONJUGATED 0.3 MG TABLET PO SCH (09:00)
[2017-02-28] MEDS ORDERED: CETIRIZINE HCL 10 MG TABLET. PO SCH (09:00)
[2017-02-28] MEDS ORDERED: IOHEXOL 300 MG/ML 100ML VIAL. IV ONE (09:45)
[2017-02-28] MEDS ORDERED: CONTRAST GIVEN MC PRN (09:45)
--- NOTE | 2017-02-28 10:56 | RAD ---
CT ANGIO CHEST ABD PELVIS History:Chest pain for a few weeks off and on for severe for one day Technique: Pre and postcontrast CT imaging was performed of the chest, abdomen, pelvis. Multiplanar reconstruction images to include MIP and 3-D reconstruction images are submitted. Exposure: One or more of the following individualized dose reduction techniques were utilized for this exam: 1. Automated exposure control.2. Adjustment of the mA and/or KV according to patient size.3. Use of iterative reconstruction technique. Contrast: 90 cc Omnipaque 300 Comparison: None Chest: Findings:Thoracic aortic caliber is within normal limits without intraluminal flap. Maximal tubular ascending thoracic aortic caliber is up to 3.4 cm. There is no pleural or pericardial effusion, pneumothorax, lobar infiltrate. Major airways are patent. There are some small mediastinal nodes, largest pretracheal node 0.8 cm short axis dimension. No significantly enlarged lymph nodes are identified. There is some heterogeneity of the breast parenchyma submitted more prominent of the superior left breast. There is tiny focus of nonspecific sclerosis left posterior eighth rib. Impression: 1.There is no evidence of thoracic aortic dissection or aneurysm. 2. There is heterogeneity of the breast parenchyma, slightly asymmetric involvement of the superior left breast better evaluated by mammography if not already performed. Abdomen pelvis: Findings: Abdominal aortic caliber is within normal limits, no dissection flap. Superior mesenteric, celiac, inferior mesenteric, and single bilateral renal arteries are patent. Iliac arteries are patent without aneurysm or dissection flap. There is diffuse prominent hepatic steatosis. There is 2.1 cm focus of somewhat round density closer to the dominant of the liver surrounded by lower density liver parenchyma. Both kidneys enhance, no hydronephrosis or renal calculus. No focal abnormality is identified of the pancreas or spleen. Accurate evaluation of bowel is limited without oral contrast. There is no bowel dilatation, free air, free fluid. There is no adrenal nodularity. Impression: 1. There is no evidence of abdominal aortic dissection or aneurysm. 2. There is diffuse prominent hepatic steatosis. 3. There is probable nonspecific liver lesion near the dome of the liver although possibly could be due to focal fatty sparing in the background of diffuse hepatic steatosis. However this has somewhat convex margins. Nonemergent MRI evaluation should be considered.
[2017-02-28 11:00] VITALS: BP 171/84
[2017-02-28] MEDS: hydrALAZINE 20 MG/ML VIAL. IVP PRN (11:19)
--- NOTE | 2017-02-28 11:49 | PDOC ---
PROGRESS NOTES Chief Complaint Chief Complaint Chest pain Hypertension Hyperlipidemia Mitral valve prolapse GERD Anxiety Depression Osteoarthritis DDD History of Present Illness History of Present Illness Pt seen and examined at bedside Pt denies any chest pain today but c/o a headache Care discussed with RN pt desires d/c home Vitals Vitals Vital Signs Date Time Temp Pulse Resp B/P (MAP) Pulse Ox O2 Delivery O2 Flow Rate FiO2 02/28/17 11:19 75 184/86 02/28/17 11:00 97.5 20 96 Room Air 97.5 Physical Exam General: Alert, Oriented X3, Cooperative, No acute distress Heart: Regular rate, Normal S1, Normal S2, Other (2/6 systolic murmur) Lungs: Clear, Other (No crackles or wheezes) Abdomen: Soft, No tenderness Extremities: No clubbing, No cyanosis, No edema, No tenderness/swelling Skin: No rashes, No breakdown Labs LABS Laboratory Tests Test 02/27/17 12:30 02/27/17 17:00 02/28/17 01:10 Urine Collection Type Unknown Urine Color Yellow Urine Clarity Clear Urine pH 6.0 Urine Specific [place] 1.010 Urine Protein Negative mg/dL (NEG-TRACE) Urine Glucose (UA) Negative mg/dL (NEG) Urine Ketones (Stick) Negative mg/dL (NEG) Urine Blood Negative (NEG) Urine Nitrite Negative (NEG) Urine Bilirubin Negative (NEG) Urine Urobilinogen Dipstick 0.2 mg/dL (0.2 mg/dL) Urine Leukocyte Esterase Negative (NEG) Urine RBC 0 /HPF (0-2) Urine WBC 5-10 /HPF (0-4) Urine Squamous Epithelial Cells Mod /LPF Urine Bacteria Many /HPF (0-FEW) Urine Mucus Mod /LPF Urine Opiates Screen Neg (NEG) Urine Methadone Screen Neg (NEG) Urine Barbiturates Neg (NEG) Urine Phencyclidine Screen Neg (NEG) Urine Amphetamine/Methamphetamine Neg (NEG) Urine Benzodiazepines Screen Neg (NEG) Urine Cocaine Screen Neg (NEG) Urine Cannabinoids Screen Neg (NEG) Urine Ethyl Alcohol Neg (NEG) Troponin I Quantitative < 0.017 ng/mL (0.000-0.055) < 0.017 ng/mL (0.000-0.055) White Blood Count 5.3 x10^3/uL (4.0-11.0) Red Blood Count 3.73 x10^6/uL (3.50-5.40) Hemoglobin 11.4 g/dL (12.0-15.5) Hematocrit 33.3 % (36.0-47.0) Mean Corpuscular Volume 89 fL (79-100) Mean Corpuscular Hemoglobin 31 pg (25-35) Mean Corpuscular Hemoglobin Concent 34 g/dL (31-37) Red Cell Distribution Width 13.5 % (11.5-14.5) Platelet Count 310 x10^3/uL (140-400) Neutrophils (%) (Auto) 48 % (31-73) Lymphocytes (%) (Auto) 39 % (24-48) Monocytes (%) (Auto) 11 % (0-9) Eosinophils (%) (Auto) 2 % (0-3) Basophils (%) (Auto) 1 % (0-3) Neutrophils # (Auto) 2.5 x10^3uL (1.8-7.7) Lymphocytes # (Auto) 2.1 x10^3/uL (1.0-4.8) Monocytes # (Auto) 0.6 x10^3/uL (0.0-1.1) Eosinophils # (Auto) 0.1 x10^3/uL (0.0-0.7) Basophils # (Auto) 0.0 x10^3/uL (0.0-0.2) Sodium Level 137 mmol/L (136-145) Potassium Level 3.8 mmol/L (3.5-5.1) Chloride Level 101 mmol/L (98-107) Carbon Dioxide Level 26 mmol/L (21-32) Anion Gap 10 (6-14) Blood Urea Nitrogen 11 mg/dL (7-20) Creatinine 0.7 mg/dL (0.6-1.0) Estimated GFR (Cockcroft-Gault) 85.9 Glucose Level 101 mg/dL (70-99) Calcium Level 8.5 mg/dL (8.5-10.1) Triglycerides Level 380 mg/dL (0-150) Cholesterol Level 269 mg/dL (0-200) LDL Cholesterol, Calculated 158 mg/dL (0-100) VLDL Cholesterol, Calculated 76 mg/dL (0-40) Non-HDL Cholesterol Calculated 234 mg/dL (0-129) HDL Cholesterol 35 mg/dL (40-60) Cholesterol/HDL Ratio 7.7 Review of Systems Review of Systems Admits to headache. Denies any n/v/, f/c Assessment and Plan Assessmemt and Plan Problems Medical Problems: (1) Chest pain Status: Acute Assessment: Chest pain Hypertension Hyperlipidemia Mitral valve prolapse GERD Anxiety Depression Osteoarthritis DDD Plan: Possible discharge if agreeable with cardiology Continue cardiac monitoring Gemfibrozil 600mg BID p.o. prescribed Continue home meds F/u with PCP Problems: Comment Review of Relevant I have reviewed the following items tete (where applicable) has been applied. Labs Laboratory Tests Test 02/27/17 11:30 02/27/17 12:30 02/27/17 17:00 02/28/17 01:10 White Blood Count 7.9 x10^3/uL (4.0-11.0) 5.3 x10^3/uL (4.0-11.0) Red Blood Count 4.11 x10^6/uL (3.50-5.40) 3.73 x10^6/uL (3.50-5.40) Hemoglobin 12.4 g/dL (12.0-15.5) 11.4 g/dL (12.0-15.5) Hematocrit 36.3 % (36.0-47.0) 33.3 % (36.0-47.0) Mean Corpuscular Volume 88 fL (79-100) 89 fL (79-100) Mean Corpuscular Hemoglobin 30 pg (25-35) 31 pg (25-35) Mean Corpuscular Hemoglobin Concent 34 g/dL (31-37) 34 g/dL (31-37) Red Cell Distribution Width 13.8 % (11.5-14.5) 13.5 % (11.5-14.5) Platelet Count 339 x10^3/uL (140-400) 310 x10^3/uL (140-400) Neutrophils (%) (Auto) 67 % (31-73) 48 % (31-73) Lymphocytes (%) (Auto) 23 % (24-48) 39 % (24-48) Monocytes (%) (Auto) 8 % (0-9) 11 % (0-9) Eosinophils (%) (Auto) 1 % (0-3) 2 % (0-3) Basophils (%) (Auto) 1 % (0-3) 1 % (0-3) Neutrophils # (Auto) 5.3 x10^3uL (1.8-7.7) 2.5 x10^3uL (1.8-7.7) Lymphocytes # (Auto) 1.8 x10^3/uL (1.0-4.8) 2.1 x10^3/uL (1.0-4.8) Monocytes # (Auto) 0.6 x10^3/uL (0.0-1.1) 0.6 x10^3/uL (0.0-1.1) Eosinophils # (Auto) 0.1 x10^3/uL (0.0-0.7) 0.1 x10^3/uL (0.0-0.7) Basophils # (Auto) 0.1 x10^3/uL (0.0-0.2) 0.0 x10^3/uL (0.0-0.2) Prothrombin Time 13.0 SEC (11.7-14.0) Prothromb Time International Ratio 1.0 (0.8-1.1) Sodium Level 138 mmol/L (136-145) 137 mmol/L (136-145) Potassium Level 3.5 mmol/L (3.5-5.1) 3.8 mmol/L (3.5-5.1) Chloride Level 101 mmol/L (98-107) 101 mmol/L (98-107) Carbon Dioxide Level 25 mmol/L (21-32) 26 mmol/L (21-32) Anion Gap 12 (6-14) 10 (6-14) Blood Urea Nitrogen 9 mg/dL (7-20) 11 mg/dL (7-20) Creatinine 0.7 mg/dL (0.6-1.0) 0.7 mg/dL (0.6-1.0) Estimated GFR (Cockcroft-Gault) 85.9 85.9 BUN/Creatinine Ratio 13 (6-20) Glucose Level 94 mg/dL (70-99) 101 mg/dL (70-99) Calcium Level 9.4 mg/dL (8.5-10.1) 8.5 mg/dL (8.5-10.1) Magnesium Level 1.7 mg/dL (1.8-2.4) Total Bilirubin 0.3 mg/dL (0.2-1.0) Aspartate Amino Transf (AST/SGOT) 23 U/L (15-37) Alanine Aminotransferase (ALT/SGPT) 28 U/L (14-59) Alkaline Phosphatase 84 U/L (46-116) Creatine Kinase 53 U/L (26-192) Creatine Kinase MB (Mass) < 0.5 ng/mL (0.0-3.6) Creatine Kinase MB Relative Index % (0-4) Troponin I Quantitative < 0.017 ng/mL (0.000-0.055) < 0.017 ng/mL (0.000-0.055) < 0.017 ng/mL (0.000-0.055) SB-Xxq-P-Type Natriuretic Peptide 362 pg/mL (0-124) Total Protein 7.3 g/dL (6.4-8.2) Albumin 3.5 g/dL (3.4-5.0) Albumin/Globulin Ratio 0.9 (1.0-1.7) Lipase 70 U/L (73-393) Thyroid Stimulating Hormone (TSH) 2.405 uIU/mL (0.358-3.74) Urine Collection Type Unknown Urine Color Yellow Urine Clarity Clear Urine pH 6.0 Urine Specific [place] 1.010 Urine Protein Negative mg/dL (NEG-TRACE) Urine Glucose (UA) Negative mg/dL (NEG) Urine Ketones (Stick) Negative mg/dL (NEG) Urine Blood Negative (NEG) Urine Nitrite Negative (NEG) Urine Bilirubin Negative (NEG) Urine Urobilinogen Dipstick 0.2 mg/dL (0.2 mg/dL) Urine Leukocyte Esterase Negative (NEG) Urine RBC 0 /HPF (0-2) Urine WBC 5-10 /HPF (0-4) Urine Squamous Epithelial Cells Mod /LPF Urine Bacteria Many /HPF (0-FEW) Urine Mucus Mod /LPF Urine Opiates Screen Neg (NEG) Urine Methadone Screen Neg (NEG) Urine Barbiturates Neg (NEG) Urine Phencyclidine Screen Neg (NEG) Urine Amphetamine/Methamphetamine Neg (NEG) Urine Benzodiazepines Screen Neg (NEG) Urine Cocaine Screen Neg (NEG) Urine Cannabinoids Screen Neg (NEG) Urine Ethyl Alcohol Neg (NEG) Triglycerides Level 380 mg/dL (0-150) Cholesterol Level 269 mg/dL (0-200) LDL Cholesterol, Calculated 158 mg/dL (0-100) VLDL Cholesterol, Calculated 76 mg/dL (0-40) Non-HDL Cholesterol Calculated 234 mg/dL (0-129) HDL Cholesterol 35 mg/dL (40-60) Cholesterol/HDL Ratio 7.7 Laboratory Tests Test 02/27/17 12:30 02/27/17 17:00 02/28/17 01:10 Urine Collection Type Unknown Urine Color Yellow Urine Clarity Clear Urine pH 6.0 Urine Specific [place] 1.010 Urine Protein Negative mg/dL (NEG-TRACE) Urine Glucose (UA) Negative mg/dL (NEG) Urine Ketones (Stick) Negative mg/dL (NEG) Urine Blood Negative (NEG) Urine Nitrite Negative (NEG) Urine Bilirubin Negative (NEG) Urine Urobilinogen Dipstick 0.2 mg/dL (0.2 mg/dL) Urine Leukocyte Esterase Negative (NEG) Urine RBC 0 /HPF (0-2) Urine WBC 5-10 /HPF (0-4) Urine Squamous Epithelial Cells Mod /LPF Urine Bacteria Many /HPF (0-FEW) Urine Mucus Mod /LPF Urine Opiates Screen Neg (NEG) Urine Methadone Screen Neg (NEG) Urine Barbiturates Neg (NEG) Urine Phencyclidine Screen Neg (NEG) Urine Amphetamine/Methamphetamine Neg (NEG) Urine Benzodiazepines Screen Neg (NEG) Urine Cocaine Screen Neg (NEG) Urine Cannabinoids Screen Neg (NEG) Urine Ethyl Alcohol Neg (NEG) Troponin I Quantitative < 0.017 ng/mL (0.000-0.055) < 0.017 ng/mL (0.000-0.055) White Blood Count 5.3 x10^3/uL (4.0-11.0) Red Blood Count 3.73 x10^6/uL (3.50-5.40) Hemoglobin 11.4 g/dL (12.0-15.5) Hematocrit 33.3 % (36.0-47.0) Mean Corpuscular Volume 89 fL (79-100) Mean Corpuscular Hemoglobin 31 pg (25-35) Mean Corpuscular Hemoglobin Concent 34 g/dL (31-37) Red Cell Distribution Width 13.5 % (11.5-14.5) Platelet Count 310 x10^3/uL (140-400) Neutrophils (%) (Auto) 48 % (31-73) Lymphocytes (%) (Auto) 39 % (24-48) Monocytes (%) (Auto) 11 % (0-9) Eosinophils (%) (Auto) 2 % (0-3) Basophils (%) (Auto) 1 % (0-3) Neutrophils # (Auto) 2.5 x10^3uL (1.8-7.7) Lymphocytes # (Auto) 2.1 x10^3/uL (1.0-4.8) Monocytes # (Auto) 0.6 x10^3/uL (0.0-1.1) Eosinophils # (Auto) 0.1 x10^3/uL (0.0-0.7) Basophils # (Auto) 0.0 x10^3/uL (0.0-0.2) Sodium Level 137 mmol/L (136-145) Potassium Level 3.8 mmol/L (3.5-5.1) Chloride Level 101 mmol/L (98-107) Carbon Dioxide Level 26 mmol/L (21-32) Anion Gap 10 (6-14) Blood Urea Nitrogen 11 mg/dL (7-20) Creatinine 0.7 mg/dL (0.6-1.0) Estimated GFR (Cockcroft-Gault) 85.9 Glucose Level 101 mg/dL (70-99) Calcium Level 8.5 mg/dL (8.5-10.1) Triglycerides Level 380 mg/dL (0-150) Cholesterol Level 269 mg/dL (0-200) LDL Cholesterol, Calculated 158 mg/dL (0-100) VLDL Cholesterol, Calculated 76 mg/dL (0-40) Non-HDL Cholesterol Calculated 234 mg/dL (0-129) HDL Cholesterol 35 mg/dL (40-60) Cholesterol/HDL Ratio 7.7 Medications Current Medications Aspirin (Mary Aspirin) 325 mg 1X ONCE PO Last administered on 02/27/17 11: 39; Start 02/27/17 at 11:30; Stop 02/27/17 at 11:31; Status DC Ondansetron HCl (Zofran) 4 mg PRN Q8HRS PRN IV NAUSEA/VOMITING Last administered on 02/28/17 11:00; Start 02/27/17 at 13:30; Stop 02/28/17 at 13 :29 Morphine Sulfate 4 mg PRN Q2HR PRN IV PAIN; Start 02/27/17 at 13:30; Stop at 13:29 Acetaminophen (Tylenol) 650 mg PRN Q4HRS PRN PO FEVER Last administered on 08:51; Start 02/27/17 at 13:30; Stop 02/28/17 at 13:29 Nitroglycerin (Nitrostat) 0.4 mg PRN Q5MIN PRN SL CHEST PAIN; Start 02/27/17 at 13:30; Stop 02/28/17 at 13:29 Hydralazine HCl (Apresoline Inj) 10 mg PRN Q4HRS PRN IVP ELEVATED BP, SEE COMMENTS Last administered on 02/28/17 11:19; Start 02/27/17 at 14:00 Magnesium Sulfate/ Dextrose 50 ml @ 25 mls/hr 1X ONCE IV Last administered on 02/27/17 16:32; Start 02/27/17 at 15:15; Stop 02/27/17 at 17:14; Status DC Clonidine HCl (Catapres) 0.1 mg 1X ONCE PO Last administered on 02/27/17 16: 24; Start 02/27/17 at 16:15; Stop 02/27/17 at 16:17; Status DC Multi-Ingredient Mouthwash/Gargle (Gi Cocktail Single Dose) 15 ml 1X ONCE SWSW Last administered on 02/27/17 16:22; Start 02/27/17 at 16:15; Stop at 16:17; Status DC Acetaminophen (Tylenol) 500 mg PRN Q6HRS PRN PO PAIN; Start 02/27/17 at 16:30 Alprazolam (Xanax) 0.5 mg PRN DAILY PRN PO ANXIETY / AGITATION Last administered on 02/27/17 21:38; Start 02/27/17 at 16:30 Aspirin (Children'S Aspirin) 81 mg HS PO Last administered on 02/27/17 21:20 ; Start 02/27/17 at 21:00 Cetirizine HCl (ZyrTEC) 10 mg DAILY PO Last administered on 02/28/17 08:47; Start 02/28/17 at 09:00 Losartan Potassium (Cozaar) 50 mg DAILY PO Last administered on 02/28/17 08: 47; Start 02/27/17 at 17:00 Pantoprazole Sodium (Protonix) 40 mg QHS PO Last administered on 02/27/17 21: 20; Start 02/27/17 at 21:00 Citalopram Hydrobromide (CeleXA) 40 mg QHS PO Last administered on 02/27/17 21:38; Start 02/27/17 at 22:00 Estrogens Conjugated (Premarin) 0.9 mg DAILY PO Last administered on 08:47; Start 02/28/17 at 09:00 Ibuprofen (Motrin) 800 mg PRN Q6HRS PRN PO INFLAMMATION Last administered on 04:36; Start 02/27/17 at 16:30 Oxycodone HCl (Roxicodone) 5 mg PRN Q4HRS PRN PO MODERATE TO SEVERE PAIN Last administered on 02/27/17 23:37; Start 02/27/17 at 16:30 Enoxaparin Sodium (Lovenox 40mg Syringe) 40 mg Q24H SQ Last administered on 19:30; Start 02/27/17 at 19:15 Famotidine (Pepcid) 20 mg BID PO Last administered on 02/28/17 08:47; Start 02/27/17 at 21:00 Al Hydroxide/Mg Hydroxide (Mylanta Plus Xs) 30 ml PRN Q2HR PRN PO HEARTBURN / GAS; Start 02/27/17 at 19:30 Iohexol (Omnipaque 300 Mg/ml) 90 ml 1X ONCE IV Last administered on 10:10; Start 02/28/17 at 09:45; Stop 02/28/17 at 09:46; Status DC Info (Do NOT chart on this entry -- for MONITORING) 1 each PRN DAILY PRN MC SEE COMMENTS; Start 02/28/17 at 09:45; Stop 03/02/17 at 09:44 Active Scripts Active Reported Clonidine Hcl 0.1 Mg Tablet 1 Tab PO PRN DAILY PRN Oxycodone Hcl 5 Mg Capsule 1 Cap PO PRN Q4-6HRS PRN Acetaminophen 500 Mg Tablet 1 Tab PO PRN PRN Alprazolam 0.5 Mg Tablet 1 Tab PO PRN DAILY PRN Aspirin 81 Mg Tab.chew 1 Tab PO HS Protonix (Pantoprazole Sodium) 40 Mg Tablet.dr 1 Tab PO HS Escitalopram Oxalate 20 Mg Tablet 1 Tab PO HS Zyrtec (Cetirizine Hcl) 10 Mg Tablet 1 Tab PO DAILY Losartan Potassium 50 Mg Tablet 50 Mg PO DAILY Premarin (Estrogens, Conjugated) 0.9 Mg Tablet 1 Tab PO DAILY Vitals/I & O Vital Sign - Last 24 Hours 02/27/17 02/27/17 02/27/17 02/27/17 12:18 13:18 13:48 15:00 Temp 97.9 97.9 Pulse 72 76 74 70 Resp 13 19 B/P (MAP) 179/81 (113) 156/79 (104) 169/82 (111) 195/79 (117) Pulse Ox 95 96 97 97 O2 Delivery Room Air Room Air Room Air Room Air 02/27/17 02/27/17 02/27/17 02/27/17 16:24 17:38 19:05 19:05 Temp 98.2 98.2 Pulse 70 87 Resp 18 B/P (MAP) 185/86 145/77 (99) 134/77 (96) Pulse Ox 96 O2 Delivery Room Air Room Air 02/27/17 02/27/17 02/27/17 02/27/17 19:29 22:48 23:16 23:37 Temp 98.1 98.1 Pulse 69 63 Resp 16 16 B/P (MAP) 179/85 (116) 165/82 (109) 179/85 Pulse Ox 96 95 O2 Delivery Room Air Room Air 02/27/17 02/28/17 02/28/17 02/28/17 23:37 00:40 02:42 07:00 Temp 97.9 97.5 97.9 97.5 Pulse 83 75 Resp 16 16 16 20 B/P (MAP) 146/73 (97) 120/64 (82) Pulse Ox 96 94 95 93 O2 Delivery Room Air Room Air Room Air Room Air 02/28/17 02/28/17 02/28/17 02/28/17 08:20 08:47 11:00 11:19 Temp 97.5 97.5 Pulse 75 73 75 Resp 20 B/P (MAP) 120/64 171/84 (113) 184/86 Pulse Ox 96 O2 Delivery Room Air Room Air Intake and Output 02/27/17 02/27/17 02/28/17 15:00 23:00 07:00 Intake Total 355 ml 400 ml Balance 355 ml 400 ml CHARI NUNEZ III DO Feb 28, 2017 11:49
[2017-02-28 15:00] VITALS: BP 109/66
== END 2017-02-28 16:15 | disposition home or self-care (01) | DRG 313 ==
LOC: ER 11:10 → 2 SOUTH 12:57
PROVIDERS: ADMIT Family Medicine; ATTEND Family Medicine
DX: R07.89 Other chest pain (principal); E66.9 Obesity, unspecified; E78.00 Pure hypercholesterolemia, unspecified; E78.5 Hyperlipidemia, unspecified; F32.9 Major depressive disorder, single episode, unspecified; F41.9 Anxiety disorder, unspecified; I10 Essential (primary) hypertension; I34.1 Nonrheumatic mitral (valve) prolapse; K21.9 Gastro-esophageal reflux disease without esophagitis; G56.01 Carpal tunnel syndrome, right upper limb; M19.90 Unspecified osteoarthritis, unspecified site; Z82.49 Family history of ischemic heart disease and other diseases of the circulatory system; Z90.710 Acquired absence of both cervix and uterus; Z83.3 Family history of diabetes mellitus; Z88.1 Allergy status to other antibiotic agents; Z88.0 Allergy status to penicillin; Z88.2 Allergy status to sulfonamides; Z91.09 Other allergy status, other than to drugs and biological substances; Z68.32 Body mass index [BMI] 32.0-32.9, adult
CPT/HCPCS: 36415; 71010; 71275; 74174; 80048; 80053; 80061; 80307; 81001; 82553; 83690; 83735; 83880; 84443; 84484; 85025; 85610; 93005; 93306; J0360; J1650; J2405; J7060; Q9967; 99285-25; G0479